=== PATIENT | male | born 1960 | race Two or more races ===

== ENCOUNTER 2022-03-02 18:18 | Emergency (ER) | payer MEDICARE, OTHER ==
[~2022-03-02] VITALS: Ht 162.6 cm; Wt 65.8 kg
[2022-03-02] MEDS ORDERED: VANCOMYCIN 1 GM in IV D5W 250 ML IV ONE (20:00)
[2022-03-02] MEDS ORDERED: CEFEPIME 1 GM in IV D5W 50 ML IV ONE (20:00)
[2022-03-02 20:12] LABS: BASOPHILS % (AUTO) 0.4 % (0.0-2.0); EOSINOPHILS % (AUTO) 1.2 % (0.0-6.0); HEMATOCRIT 33 % (39-51); LYMPHOCYTES # (AUTO) 1.4 K/uL (0.8-4.8); MEAN CORPUSCULAR HGB CONC 33 g/dl (31.0-36.0); MEAN CORPUSCULAR VOLUME 88 fL (80-96); MONOCYTES # (AUTO) 0.7 K/uL (0.1-1.30); MONOCYTES % (AUTO) 10.3 % (2.0-12.0); NEUTROPHILS # (AUTO) 4.4 K/uL (1.8-8.9); NEUTROPHILS % (AUTO) 67.1 % (43.0-81.0); PLATELET COUNT (AUTO) 192 K/uL (150-450); RED BLOOD CELL COUNT(AUTO) 3.81 MIL/uL (4.5-6.0); WHITE BLOOD COUNT (AUTO) 6.5 K/uL (4.3-11.0)
[2022-03-02 20:27] LABS: CALCIUM, SERUM 8.6 mg/dL (8.5-10.1); CREATININE 1.1 mg/dL (0.6-1.3); POTASSIUM 3.1 mmol/L (3.5-5.1)
[2022-03-02 20:33] LABS: ALBUMIN 2.7 g/dL (3.4-5.0); BILIRUBIN,DIRECT 0.1 mg/dL (0.0-0.2); BILIRUBIN,TOTAL 0.3 mg/dL (0.2-1.0); TOTAL PROTEIN, SERUM 8.7 g/dL (6.4-8.2)
[2022-03-02] MEDS ORDERED: CEFEPIME 1 GM VIAL ONE (20:50)
[2022-03-02] MEDS ORDERED: VANCOMYCIN 1 GM VIAL ONE (20:54)
[2022-03-03] MEDS ORDERED: VANCOMYCIN 1 GM in IV D5W 250 ML IV ONE (06:00)
[2022-03-03] MEDS ORDERED: VANCOMYCIN 1 GM VIAL ONE (06:06)
[2022-03-03 09:00] VITALS: BP 120/70
== END 2022-03-03 10:23 | disposition short-term general hospital (02) ==
LOC: ER 18:51
DX: M65.841 Other synovitis and tenosynovitis, right hand (principal); L03.113 Cellulitis of right upper limb; R91.8 Other nonspecific abnormal finding of lung field; D64.9 Anemia, unspecified; R74.8 Abnormal levels of other serum enzymes; E87.6 Hypokalemia; Z96.643 Presence of artificial hip joint, bilateral; Z98.42 Cataract extraction status, left eye; Z98.41 Cataract extraction status, right eye; Z20.822 Contact with and (suspected) exposure to COVID-19
CPT/HCPCS: 99285; 96365; 71045; 96367; 87426; 93005; 73130; 85025; 80048; 87040 ×2; 83605; 80076; 36415; 85730; 96366; J3370 ×2; J7060 ×2; J0692; C9803

== ENCOUNTER 2022-04-29 23:17 | Emergency (ER) | payer MEDICARE, OTHER ==
[~2022-04-29] VITALS: Ht 162.6 cm; Wt 68.0 kg
[2022-04-30] MEDS ORDERED: MAG HYDROX/AL HYDROX/SIMETH 30 ML UDC ONE (01:41)
[2022-04-30] MEDS ORDERED: ONDANSETRON 4 MG TAB.RAPDIS ONE (01:42)
[2022-04-30] MEDS ORDERED: LIDOCAINE VISCOUS 2% UD 15 ML UDC ONE (01:42)
--- NOTE | 2022-04-30 01:44 | NUR ---
BIBSELF C/O EPIGASTRIC PAIN S/P EATING BURRITO FROM VENDING MACHINE. AWAKE AND ALERT BREATHING UNLABORED, AMBULATES WITH STEADY GAIT.
[2022-04-30] MEDS: LIDOCAINE VISCOUS 2% UD 15 ML UDC MM ONE (01:47)
[2022-04-30] MEDS: MAG HYDROX/AL HYDROX/SIMETH 30 ML UDC PO ONE (01:47)
[2022-04-30] MEDS: ONDANSETRON 4 MG TAB.RAPDIS SL ONE (01:47)
[2022-04-30] MEDS ORDERED: PANT40TA2 PO (02:24)
--- NOTE | 2022-04-30 02:36 | NUR ---
Patient discharged to home in stable condition. Written and verbal after care instructions given. Patient verbalizes understanding of instruction.
[2022-04-30 02:37] VITALS: BP 133/67
== END 2022-04-30 02:38 | disposition home or self-care (01) ==
LOC: ER 23:22
DX: K21.9 Gastro-esophageal reflux disease without esophagitis (principal); R10.13 Epigastric pain; R11.2 Nausea with vomiting, unspecified; Z96.643 Presence of artificial hip joint, bilateral; Z79.899 Other long term (current) drug therapy
CPT/HCPCS: 99283; 93005; Q0162

== ENCOUNTER 2023-03-27 16:49 | Inpatient (IN) | payer MEDICARE, OTHER ==
[~2023-03-27] VITALS: Ht 162.6 cm; Wt 52.2 kg
[~2023-03-27 16:49] MED LIST: PANT40TA2 PO
[2023-03-27] MEDS ORDERED: ALBUTEROL FS 2.5 MG/3 ML VIAL.NEB NEB ONE (17:30)
[2023-03-27] MEDS ORDERED: IPRATROPIUM NEB FS 0.5 MG/2.5 ML AMPUL.NEB NEB ONE (17:30)
[2023-03-27 17:34] LABS: BASOPHILS % (AUTO) 0.1 % (0.0-2.0); EOSINOPHILS # (AUTO) 0.2 K/uL (0.0-0.7); EOSINOPHILS % (AUTO) 1.4 % (0.0-6.0); HEMATOCRIT 30 % (39-51); HEMOGLOBIN 9.8 g/dL (13.5-17.5); LYMPHOCYTES # (AUTO) 0.9 K/uL (0.8-4.8); LYMPHOCYTES % (AUTO) 7.8 % (20.0-44.0); MEAN CORPUSCULAR HEMOGLOBIN 30 PG (26.0-33.0); MEAN CORPUSCULAR HGB CONC 32 g/dl (31.0-36.0); MEAN CORPUSCULAR VOLUME 92 fL (80-96); MONOCYTES # (AUTO) 1.2 K/uL (0.1-1.30); MONOCYTES % (AUTO) 10.4 % (2.0-12.0); NEUTROPHILS # (AUTO) 9.1 K/uL (1.8-8.9); NEUTROPHILS % (AUTO) 80.3 % (43.0-81.0); PLATELET COUNT (AUTO) 148 K/uL (150-450); RED BLOOD CELL COUNT(AUTO) 3.28 MIL/uL (4.5-6.0); RED CELL DISTRIBUTION WIDTH 16.6 % (11.5-15.0); WHITE BLOOD COUNT (AUTO) 11.4 K/uL (4.3-11.0)
[2023-03-27 17:42] LABS: CALCIUM, SERUM 8.5 mg/dL (8.5-10.1); CARBON DIOXIDE 18 mmol/L (21-32); CHLORIDE 102 mmol/L (98-107); CREATININE 1.1 mg/dL (0.6-1.3); GLUCOSE 94 mg/dL (74-106); POTASSIUM 3.4 mmol/L (3.5-5.1); SODIUM SERUM 133 mmol/L (136-145); UREA NITROGEN, BLOOD 22 mg/dL (7-18)
[2023-03-27 17:53] LABS: ALANINE AMINOTRANSFERASE 65 U/L (12-78); ALBUMIN 2.6 g/dL (3.4-5.0); ALKALINE PHOSPHATASE 825 U/L (46-116); ASPARTATE AMINOTRANSFERASE 70 U/L (15-37); BILIRUBIN,DIRECT 0.3 mg/dL (0.0-0.2); BILIRUBIN,TOTAL 0.5 mg/dL (0.2-1.0); TOTAL PROTEIN, SERUM 8.6 g/dL (6.4-8.2)
[2023-03-27] MEDS ORDERED: VANCOMYCIN 1 GM in IV D5W 250 ML IV ONE (18:00)
[2023-03-27] MEDS ORDERED: CEFTRIAXONE 1GM BAG (ER ONLY) 50 ML IV ONE ×2 (18:00→18:15)
[2023-03-27] MEDS ORDERED: AZITHROMYCIN 500 MG in IV D5W 250 ML IV ONE (18:00)
[2023-03-27] MEDS ORDERED: CLON0.5T4 PO (18:03)
[2023-03-27] MEDS ORDERED: OXYC10TA49 PO (18:03)
[2023-03-27] MEDS ORDERED: MULT-754 PO (18:03)
[2023-03-27] MEDS ORDERED: FERR325T23 PO (18:03)
[2023-03-27] MEDS ORDERED: SERT50TA PO (18:03)
[2023-03-27] MEDS ORDERED: BICA50TA49 PO (18:03)
[2023-03-27] MEDS ORDERED: OMEP20TA5 PO (18:03)
[2023-03-27] MEDS ORDERED: ALBUTEROL FS 2.5 MG/3 ML VIAL.NEB ONE (18:11)
[2023-03-27 18:12] VITALS: O2SAT 96
[2023-03-27] MEDS ORDERED: IPRATROPIUM NEB FS 0.5 MG/2.5 ML AMPUL.NEB ONE (18:12)
[2023-03-27] MEDS ORDERED: VANCOMYCIN 1 GM /D5W 250 ML PB IV ONE (18:15)
[2023-03-27 18:22] VITALS: O2SAT 98
[2023-03-27 20:00] VITALS: BP_SYST 119; BP_SYST 98; BP_DIAS 72; BP_DIAS 77; TEMP 100.2; TEMP 97.9; O2SAT 100; O2SAT 97
[2023-03-27] MEDS ORDERED: POTASSIUM CHLORIDE 20 MEQ TAB.PRT.SR PO ONE (20:00)
[2023-03-27] MEDS ORDERED: ONDANSETRON HCL/PF 4 MG/2 ML VIAL IVP PRN (20:00)
[2023-03-27] MEDS: ENOXAPARIN SODIUM 40 MG/0.4 ML DISP.SYRIN SQ SCH (21:54)
[2023-03-27] MEDS: ACETAMINOPHEN 325 MG TABLET PO PRN (22:08)
[2023-03-28] VITALS: BP 90/61; TEMP 98.4; O2SAT 98
[2023-03-28] MEDS ORDERED: GUAIFENESIN/D-METHORPHAN HB 5 ML UDC PO PRN
[2023-03-28] MEDS ORDERED: IPRATROPIUM NEB FS 0.5 MG/2.5 ML AMPUL.NEB NEB PRN
[2023-03-28] MEDS: IV NS 0.9% 1,000 ML IV PRN ×2 (01:00→19:19)
[2023-03-28 04:00] VITALS: BP 98/72; TEMP 97.9; O2SAT 100
[2023-03-28 05:44] LABS: BASOPHILS % (AUTO) 0.1 % (0.0-2.0); EOSINOPHILS # (AUTO) 0.3 K/uL (0.0-0.7); EOSINOPHILS % (AUTO) 2.7 % (0.0-6.0); HEMATOCRIT 28 % (39-51); HEMOGLOBIN 9.1 g/dL (13.5-17.5); LYMPHOCYTES # (AUTO) 0.5 K/uL (0.8-4.8); LYMPHOCYTES % (AUTO) 4.5 % (20.0-44.0); MEAN CORPUSCULAR HEMOGLOBIN 30 PG (26.0-33.0); MEAN CORPUSCULAR HGB CONC 33 g/dl (31.0-36.0); MEAN CORPUSCULAR VOLUME 92 fL (80-96); MONOCYTES # (AUTO) 0.5 K/uL (0.1-1.30); MONOCYTES % (AUTO) 4.4 % (2.0-12.0); NEUTROPHILS # (AUTO) 10.1 K/uL (1.8-8.9); NEUTROPHILS % (AUTO) 88.3 % (43.0-81.0); PLATELET COUNT (AUTO) 126 K/uL (150-450); RED BLOOD CELL COUNT(AUTO) 3.01 MIL/uL (4.5-6.0); RED CELL DISTRIBUTION WIDTH 15.8 % (11.5-15.0); WHITE BLOOD COUNT (AUTO) 11.4 K/uL (4.3-11.0)
[2023-03-28 05:56] LABS: CALCIUM, SERUM 8.2 mg/dL (8.5-10.1); CREATININE 1.5 mg/dL (0.6-1.3); MAGNESIUM 1.9 mg/dL (1.8-2.4); PHOSPHORUS 4.4 mg/dL (2.5-4.9); POTASSIUM 3.3 mmol/L (3.5-5.1)
[2023-03-28 08:00] VITALS: BP 100/67; TEMP 97.6; O2SAT 100
[2023-03-28] MEDS: ACETAMINOPHEN 325 MG TABLET PO PRN (08:53)
[2023-03-28] MEDS: Z GUARD REMEDY 4 OZ OINT TP SCH (09:10)
[2023-03-28] MEDS ORDERED: POTASSIUM CHLORIDE 20 MEQ TAB.PRT.SR PO SCH (10:30)
[2023-03-28 12:00] VITALS: BP 96/66; TEMP 97.5; O2SAT 100
[2023-03-28] MEDS: HYDROCODONE/APAP 5/325MG TABLET PO PRN (13:28)
[2023-03-28 13:44] LABS: APPEARANCE,URINE CLEAR (CLEAR); BILIRUBIN,URINE NEGATIVE (NEGATIVE); BLOOD, URINE NEGATIVE Ery/uL (NEGATIVE); COLOR,URINE YELLOW (YELLOW); KETONES,URINE NEGATIVE (NEGATIVE); LEUKOCYTE ESTERASE ,URINE NEGATIVE (NEGATIVE); NITRITE, URINE NEGATIVE (NEGATIVE); PROTEIN,URINE 1+ mg/dl (NEGATIVE); UGLUCOSE NEGATIVE (NEGATIVE); UROBILINOGEN,URINE 0.2 EU/dL (0.2)
[2023-03-28 14:00] LABS: EOSINOPHIL,URINE Rare
[2023-03-28 14:02] LABS: CREATININE, URINE 156.1 MG/DL (30.0-125.0); URINE TOTAL PROTEIN 100.1 mg/dL (0-11.9)
[2023-03-28 14:12] LABS: MAGNESIUM 1.9 mg/dL (1.8-2.4); PHOSPHORUS 4.5 mg/dL (2.5-4.9)
[2023-03-28 14:23] LABS: THYROID STIMULATING HORMONE 0.599 uIU/mL (0.358-3.74)
[2023-03-28 16:00] VITALS: BP 96/66; TEMP 97.5; O2SAT 99
[2023-03-28] MEDS: CEFTRIAXONE 1 G in IV D5W 50 ML IV SCH (16:34)
[2023-03-28] MEDS: AZITHROMYCIN 500 MG in IV D5W 250 ML IV SCH (17:09)
[2023-03-28 20:00] VITALS: BP 94/66; TEMP 97.3; O2SAT 100
[2023-03-28] MEDS: ENOXAPARIN SODIUM 40 MG/0.4 ML DISP.SYRIN SQ SCH (21:33)
[2023-03-29] MEDS: HYDROCODONE/APAP 5/325MG TABLET PO PRN ×2 (01:00→20:57)
[2023-03-29 05:54] LABS: BASOPHILS % (AUTO) 0.4 % (0.0-2.0); EOSINOPHILS % (AUTO) 20.5 % (0.0-6.0); HEMATOCRIT 28 % (39-51); HEMOGLOBIN 9.5 g/dL (13.5-17.5); LYMPHOCYTES # (AUTO) 0.7 K/uL (0.8-4.8); LYMPHOCYTES % (AUTO) 15.6 % (20.0-44.0); MEAN CORPUSCULAR HEMOGLOBIN 31 PG (26.0-33.0); MEAN CORPUSCULAR HGB CONC 34 g/dl (31.0-36.0); MEAN CORPUSCULAR VOLUME 92 fL (80-96); MONOCYTES # (AUTO) 0.4 K/uL (0.1-1.30); MONOCYTES % (AUTO) 7.7 % (2.0-12.0); NEUTROPHILS # (AUTO) 2.7 K/uL (1.8-8.9); NEUTROPHILS % (AUTO) 55.8 % (43.0-81.0); PLATELET COUNT (AUTO) 122 K/uL (150-450); RED BLOOD CELL COUNT(AUTO) 3.04 MIL/uL (4.5-6.0); RED CELL DISTRIBUTION WIDTH 15.9 % (11.5-15.0); WHITE BLOOD COUNT (AUTO) 4.8 K/uL (4.3-11.0)
[2023-03-29 06:32] LABS: ALBUMIN 2.1 g/dL (3.4-5.0); BILIRUBIN,TOTAL 0.2 mg/dL (0.2-1.0); CALCIUM, SERUM 8.6 mg/dL (8.5-10.1); CREATININE 1.5 mg/dL (0.6-1.3); PHOSPHORUS 4.5 mg/dL (2.5-4.9); POTASSIUM 3.6 mmol/L (3.5-5.1); TOTAL PROTEIN, SERUM 7.6 g/dL (6.4-8.2)
[2023-03-29 08:00] VITALS: BP 105/67; TEMP 97.9; O2SAT 100
[2023-03-29] MEDS: Z GUARD REMEDY 4 OZ OINT TP SCH (09:07)
[2023-03-29 09:29] LABS: LYMPHOCYTES % (MANUAL) 8 % (16-48); MONOCYTES % (MANUAL) 16 % (0-11.0); NEUTROPHILS % (MANUAL) 67 (42-76); PLATELET ESTIMATE DECREASED; REACTIVE LYMPHOCYTES 9 % (0-0)
[2023-03-29 09:31] LABS: ANISOCYTOSIS 1+
[2023-03-29 16:00] VITALS: BP 110/73; TEMP 98.2; O2SAT 93
[2023-03-29] MEDS: CEFTRIAXONE 1 G in IV D5W 50 ML IV SCH (16:06)
[2023-03-29] MEDS: AZITHROMYCIN 500 MG in IV D5W 250 ML IV SCH (17:24)
[2023-03-29 20:00] VITALS: BP 110/72; TEMP 97.9; O2SAT 97
[2023-03-29] MEDS: ENOXAPARIN SODIUM 40 MG/0.4 ML DISP.SYRIN SQ SCH (20:57)
[2023-03-30] VITALS: BP 109/74; TEMP 97.5; O2SAT 100
[2023-03-30] MEDS: IV NS 0.9% 1,000 ML IV PRN (01:46)
[2023-03-30 04:00] VITALS: BP 128/81; TEMP 97.7; O2SAT 100
[2023-03-30 06:03] LABS: CALCIUM, SERUM 8.5 mg/dL (8.5-10.1); MAGNESIUM 1.8 mg/dL (1.8-2.4); PHOSPHORUS 4.5 mg/dL (2.5-4.9); POTASSIUM 3.8 mmol/L (3.5-5.1)
[2023-03-30 06:10] LABS: BASOPHILS % (AUTO) 0.4 % (0.0-2.0); EOSINOPHILS # (AUTO) 0.8 K/uL (0.0-0.7); EOSINOPHILS % (AUTO) 23.8 % (0.0-6.0); HEMATOCRIT 28 % (39-51); HEMOGLOBIN 9.4 g/dL (13.5-17.5); LYMPHOCYTES # (AUTO) 0.8 K/uL (0.8-4.8); LYMPHOCYTES % (AUTO) 24.2 % (20.0-44.0); MEAN CORPUSCULAR HEMOGLOBIN 31 PG (26.0-33.0); MEAN CORPUSCULAR HGB CONC 33 g/dl (31.0-36.0); MEAN CORPUSCULAR VOLUME 92 fL (80-96); MONOCYTES # (AUTO) 0.4 K/uL (0.1-1.30); MONOCYTES % (AUTO) 11.9 % (2.0-12.0); NEUTROPHILS # (AUTO) 1.4 K/uL (1.8-8.9); NEUTROPHILS % (AUTO) 39.7 % (43.0-81.0); PLATELET COUNT (AUTO) 133 K/uL (150-450); RED BLOOD CELL COUNT(AUTO) 3.05 MIL/uL (4.5-6.0); RED CELL DISTRIBUTION WIDTH 16.1 % (11.5-15.0); WHITE BLOOD COUNT (AUTO) 3.4 K/uL (4.3-11.0)
[2023-03-30 09:07] LABS: PTH, INTACT 10 pg/mL (15-65)
[2023-03-30] MEDS: Z GUARD REMEDY 4 OZ OINT TP SCH (09:07)
[2023-03-30 11:30] VITALS: BP 96/66; TEMP 98.1; O2SAT 97
[2023-03-30] MEDS: ACETAMINOPHEN 325 MG TABLET PO PRN (12:54)
[2023-03-30 13:33] LABS: MONOCYTES % (MANUAL) 13 % (0-11.0)
[2023-03-30 13:34] LABS: LYMPHOCYTES % (MANUAL) 22 % (16-48)
[2023-03-30 13:36] LABS: EOSINOPHILS % (MANUAL) 10 % (0-4); NEUTROPHILS % (MANUAL) 55 (42-76)
[2023-03-30 13:37] LABS: PLATELET ESTIMATE DECREASED
[2023-03-30 13:38] LABS: ANISOCYTOSIS 1+
[2023-03-30] MEDS ORDERED: GUAIFENESIN/D-METHORPHAN HB 5 ML UDC PO PRN (14:30)
[2023-03-30 16:00] VITALS: BP 105/76; TEMP 97.5; O2SAT 100
[2023-03-30] MEDS: CEFTRIAXONE 1 G in IV D5W 50 ML IV SCH (16:49)
[2023-03-30] MEDS: AZITHROMYCIN 500 MG in IV D5W 250 ML IV SCH (17:43)
[2023-03-30 20:00] VITALS: BP 101/75; TEMP 98.2; O2SAT 99
[2023-03-30] MEDS: MECLIZINE HCL 25 MG TABLET PO SCH (20:29)
[2023-03-30] MEDS: ENOXAPARIN SODIUM 40 MG/0.4 ML DISP.SYRIN SQ SCH (20:41)
[2023-03-31] VITALS (7 sets, daily range): BP systolic 106–122; BP diastolic 68–81; TEMP 97.5–98.8; O2SAT 96–100
[2023-03-31] MEDS: MECLIZINE HCL 25 MG TABLET PO SCH ×3 (04:44→20:30)
[2023-03-31 05:09] LABS: *SPE A/G RATIO 0.6 (0.7-1.7); *SPE ALBUMIN 2.5 g/dL (2.9-4.4); *SPE ALPHA-1-GLOBULIN 0.4 g/dL (0.0-0.4); *SPE ALPHA-2-GLOBULIN 0.7 g/dL (0.4-1.0); *SPE GLOBULIN, TOTAL 4.4 g/dL (2.2-3.9); *SPE M-SPIKE Not Observed g/dL (Not Observed); *SPE PROTEIN TOTAL 6.9 g/dL (6.0-8.5); *SPEGAMMA GLOBULIN 2.2 g/dL (0.4-1.8)
[2023-03-31] MEDS: IV NS 0.9% 1,000 ML IV PRN (05:31)
[2023-03-31 06:19] LABS: BASOPHILS % (AUTO) 0.3 % (0.0-2.0); EOSINOPHILS # (AUTO) 0.7 K/uL (0.0-0.7); EOSINOPHILS % (AUTO) 18.5 % (0.0-6.0); HEMATOCRIT 28 % (39-51); HEMOGLOBIN 9.2 g/dL (13.5-17.5); LYMPHOCYTES # (AUTO) 0.8 K/uL (0.8-4.8); LYMPHOCYTES % (AUTO) 21.4 % (20.0-44.0); MEAN CORPUSCULAR HEMOGLOBIN 31 PG (26.0-33.0); MEAN CORPUSCULAR HGB CONC 33 g/dl (31.0-36.0); MEAN CORPUSCULAR VOLUME 92 fL (80-96); MONOCYTES # (AUTO) 0.4 K/uL (0.1-1.30); MONOCYTES % (AUTO) 12.6 % (2.0-12.0); NEUTROPHILS # (AUTO) 1.7 K/uL (1.8-8.9); NEUTROPHILS % (AUTO) 47.2 % (43.0-81.0); PLATELET COUNT (AUTO) 152 K/uL (150-450); RED BLOOD CELL COUNT(AUTO) 2.99 MIL/uL (4.5-6.0); RED CELL DISTRIBUTION WIDTH 16.4 % (11.5-15.0); WHITE BLOOD COUNT (AUTO) 3.5 K/uL (4.3-11.0)
[2023-03-31 07:15] LABS: ALBUMIN 2.2 g/dL (3.4-5.0); BILIRUBIN,TOTAL 0.2 mg/dL (0.2-1.0); CALCIUM, SERUM 8.5 mg/dL (8.5-10.1); CREATININE 0.9 mg/dL (0.6-1.3); MAGNESIUM 1.6 mg/dL (1.8-2.4); PHOSPHORUS 4.2 mg/dL (2.5-4.9); POTASSIUM 4.1 mmol/L (3.5-5.1); TOTAL PROTEIN, SERUM 7.4 g/dL (6.4-8.2)
[2023-03-31] MEDS: Z GUARD REMEDY 4 OZ OINT TP SCH (09:25)
[2023-03-31] MEDS: Magnesium 1GM/D5W 100ML PREMIX 100 ML IV SCH ×2 (10:24→11:25)
[2023-03-31] MEDS: CEFTRIAXONE 1 G in IV D5W 50 ML IV SCH (17:17)
[2023-03-31] MEDS: AZITHROMYCIN 500 MG in IV D5W 250 ML IV SCH (17:21)
[2023-03-31] MEDS: ENOXAPARIN SODIUM 40 MG/0.4 ML DISP.SYRIN SQ SCH (20:32)
[2023-04-01] VITALS: BP 124/82; TEMP 97.9; O2SAT 100
[2023-04-01] MEDS: MECLIZINE HCL 25 MG TABLET PO SCH ×3 (04:37→20:36)
[2023-04-01] MEDS: IV NS 0.9% 1,000 ML IV PRN (06:24)
[2023-04-01 07:16] LABS: CALCIUM, SERUM 8.4 mg/dL (8.5-10.1); CREATININE 0.9 mg/dL (0.6-1.3); MAGNESIUM 1.7 mg/dL (1.8-2.4)
[2023-04-01 07:30] LABS: BASOPHILS % (AUTO) 0.8 % (0.0-2.0); EOSINOPHILS # (AUTO) 0.6 K/uL (0.0-0.7); EOSINOPHILS % (AUTO) 18.4 % (0.0-6.0); HEMATOCRIT 28 % (39-51); HEMOGLOBIN 9.2 g/dL (13.5-17.5); LYMPHOCYTES # (AUTO) 0.8 K/uL (0.8-4.8); LYMPHOCYTES % (AUTO) 23.7 % (20.0-44.0); MEAN CORPUSCULAR HEMOGLOBIN 31 PG (26.0-33.0); MEAN CORPUSCULAR HGB CONC 33 g/dl (31.0-36.0); MEAN CORPUSCULAR VOLUME 92 fL (80-96); MONOCYTES # (AUTO) 0.6 K/uL (0.1-1.30); MONOCYTES % (AUTO) 18.3 % (2.0-12.0); NEUTROPHILS # (AUTO) 1.3 K/uL (1.8-8.9); NEUTROPHILS % (AUTO) 38.8 % (43.0-81.0); PLATELET COUNT (AUTO) 154 K/uL (150-450); RED CELL DISTRIBUTION WIDTH 15.8 % (11.5-15.0); WHITE BLOOD COUNT (AUTO) 3.3 K/uL (4.3-11.0)
[2023-04-01 08:00] VITALS: BP 127/81; TEMP 97.9; O2SAT 100
[2023-04-01 08:49] LABS: BILIRUBIN,TOTAL 0.2 mg/dL (0.2-1.0)
[2023-04-01 08:50] LABS: ALBUMIN 2.2 g/dL (3.4-5.0); BILIRUBIN,DIRECT 0.1 mg/dL (0.0-0.2); TOTAL PROTEIN, SERUM 7.2 g/dL (6.4-8.2)
[2023-04-01] MEDS ORDERED: MAGNESIUM OXIDE 400 MG TABLET PO ONE (09:30)
[2023-04-01 10:11] LABS: BAND % (MANUAL) 1 % (0.0-5.0); EOSINOPHILS % (MANUAL) 8 % (0-4); LYMPHOCYTES % (MANUAL) 32 % (16-48); MONOCYTES % (MANUAL) 23 % (0-11.0); NEUTROPHILS % (MANUAL) 36 (42-76); PLATELET ESTIMATE ADEQUATE
[2023-04-01] MEDS: Z GUARD REMEDY 4 OZ OINT TP PRN (10:18)
[2023-04-01] MEDS: Z GUARD REMEDY 4 OZ OINT TP SCH (11:16)
[2023-04-01] MEDS ORDERED: CT SWABBABLE VALVE TRANS SET 1 EA INFUS.SET MC ONE (13:42)
[2023-04-01] MEDS ORDERED: IV NS 0.9% 250 ML IV ONE (13:42)
[2023-04-01] MEDS ORDERED: IOHEXOL-300 100 ML VIAL IV ONE (13:42)
[2023-04-01 16:00] VITALS: BP 139/93; TEMP 99.3; O2SAT 97
[2023-04-01] MEDS: HYDROCODONE/APAP 5/325MG TABLET PO PRN ×3 (16:50→17:58)
[2023-04-01] MEDS: CEFTRIAXONE 1 G in IV D5W 50 ML IV SCH (16:53)
[2023-04-01 20:00] VITALS: BP 130/79; TEMP 97.7; O2SAT 100
[2023-04-01] MEDS: ENOXAPARIN SODIUM 40 MG/0.4 ML DISP.SYRIN SQ SCH (20:37)
[2023-04-01 20:43] VITALS: BP 130/79; TEMP 97.7; O2SAT 100
[2023-04-02] VITALS: BP 126/92; TEMP 97.5; O2SAT 99
[2023-04-02] MEDS: MECLIZINE HCL 25 MG TABLET PO SCH ×3 (04:22→20:19)
[2023-04-02 06:57] LABS: BASOPHILS % (AUTO) 1.2 % (0.0-2.0); EOSINOPHILS # (AUTO) 0.7 K/uL (0.0-0.7); EOSINOPHILS % (AUTO) 19.3 % (0.0-6.0); HEMATOCRIT 24 % (39-51); HEMOGLOBIN 8.1 g/dL (13.5-17.5); LYMPHOCYTES # (AUTO) 0.9 K/uL (0.8-4.8); MEAN CORPUSCULAR HEMOGLOBIN 31 PG (26.0-33.0); MEAN CORPUSCULAR HGB CONC 33 g/dl (31.0-36.0); MEAN CORPUSCULAR VOLUME 92 fL (80-96); MONOCYTES # (AUTO) 0.6 K/uL (0.1-1.30); MONOCYTES % (AUTO) 17.6 % (2.0-12.0); NEUTROPHILS # (AUTO) 1.2 K/uL (1.8-8.9); NEUTROPHILS % (AUTO) 35.9 % (43.0-81.0); PLATELET COUNT (AUTO) 190 K/uL (150-450); RED BLOOD CELL COUNT(AUTO) 2.67 MIL/uL (4.5-6.0); RED CELL DISTRIBUTION WIDTH 15.8 % (11.5-15.0); WHITE BLOOD COUNT (AUTO) 3.4 K/uL (4.3-11.0)
[2023-04-02 07:33] LABS: CALCIUM, SERUM 8.5 mg/dL (8.5-10.1); CREATININE 0.9 mg/dL (0.6-1.3); MAGNESIUM 1.5 mg/dL (1.8-2.4); PHOSPHORUS 3.6 mg/dL (2.5-4.9); POTASSIUM 4.2 mmol/L (3.5-5.1)
[2023-04-02 07:42] LABS: ALBUMIN 2.3 g/dL (3.4-5.0); BILIRUBIN,DIRECT 0.1 mg/dL (0.0-0.2); BILIRUBIN,TOTAL 0.2 mg/dL (0.2-1.0); TOTAL PROTEIN, SERUM 7.8 g/dL (6.4-8.2)
[2023-04-02 07:48] LABS: FREE PSA 5.39 ng/mL (0.00-45); PROSTATE SPECIFIC ANTIGEN SCR 29.86 ng/mL (0.00-4.00)
[2023-04-02] MEDS: ENSURE ENLIVE CHOC 237 ML CAN PO SCH ×2 (07:58→17:09)
[2023-04-02 08:08] LABS: THYROID STIMULATING HORMONE 1.059 uIU/mL (0.358-3.74)
[2023-04-02 08:31] VITALS: BP 122/82; TEMP 98.1; O2SAT 100
[2023-04-02] MEDS: BICALUTAMIDE 50 MG TABLET PO SCH (08:31)
[2023-04-02] MEDS: Z GUARD REMEDY 4 OZ OINT TP SCH (08:31)
[2023-04-02 10:35] LABS: RHEUMATOID FACTOR SCREEN NEGATIVE (NEGATIVE)
[2023-04-02 10:45] LABS: BAND % (MANUAL) 2 % (0.0-5.0); EOSINOPHILS % (MANUAL) 8 % (0-4); LYMPHOCYTES % (MANUAL) 32 % (16-48); MONOCYTES % (MANUAL) 31 % (0-11.0); NEUTROPHILS % (MANUAL) 27 (42-76); PLATELET ESTIMATE ADEQUATE
[2023-04-02] MEDS ORDERED: MAGNESIUM OXIDE 400 MG TABLET PO ONE (11:00)
[2023-04-02 12:00] VITALS: BP 116/68; TEMP 97.5; O2SAT 96
[2023-04-02] MEDS ORDERED: FLUCONAZOLE (100 MG) 100 MG TABLET PO ONE (13:30)
[2023-04-02 15:06] LABS: HEMOGLOBIN 8.5 g/dL (13.5-17.5)
[2023-04-02] MEDS: CEFTRIAXONE 1 G in IV D5W 50 ML IV SCH (16:03)
[2023-04-02 16:11] VITALS: BP 112/68; TEMP 97.4; O2SAT 97
[2023-04-02] MEDS: ACETAMINOPHEN 325 MG TABLET PO PRN (17:33)
[2023-04-02 20:00] VITALS: BP 121/77; TEMP 99; O2SAT 100
[2023-04-02] MEDS: ENOXAPARIN SODIUM 40 MG/0.4 ML DISP.SYRIN SQ SCH (20:20)
[2023-04-02] MEDS: HYDROCODONE/APAP 5/325MG TABLET PO PRN (22:36)
[2023-04-03] VITALS: BP 99/63; TEMP 98.1; O2SAT 99
[2023-04-03 04:11] VITALS: BP 129/79; TEMP 98.2; O2SAT 100
[2023-04-03] MEDS: MECLIZINE HCL 25 MG TABLET PO SCH ×3 (04:58→21:38)
[2023-04-03 05:50] LABS: BASOPHILS % (AUTO) 1.2 % (0.0-2.0); EOSINOPHILS # (AUTO) 0.4 K/uL (0.0-0.7); EOSINOPHILS % (AUTO) 15.8 % (0.0-6.0); HEMATOCRIT 28 % (39-51); HEMOGLOBIN 9.1 g/dL (13.5-17.5); LYMPHOCYTES % (AUTO) 36.5 % (20.0-44.0); MEAN CORPUSCULAR HEMOGLOBIN 30 PG (26.0-33.0); MEAN CORPUSCULAR HGB CONC 33 g/dl (31.0-36.0); MEAN CORPUSCULAR VOLUME 92 fL (80-96); MONOCYTES # (AUTO) 0.5 K/uL (0.1-1.30); MONOCYTES % (AUTO) 18.8 % (2.0-12.0); NEUTROPHILS # (AUTO) 0.8 K/uL (1.8-8.9); NEUTROPHILS % (AUTO) 27.7 % (43.0-81.0); PLATELET COUNT (AUTO) 152 K/uL (150-450); RED BLOOD CELL COUNT(AUTO) 3.02 MIL/uL (4.5-6.0); RED CELL DISTRIBUTION WIDTH 15.6 % (11.5-15.0); WHITE BLOOD COUNT (AUTO) 2.8 K/uL (4.3-11.0)
[2023-04-03 06:05] LABS: ALBUMIN 2.3 g/dL (3.4-5.0); BILIRUBIN,DIRECT 0.1 mg/dL (0.0-0.2); BILIRUBIN,TOTAL 0.2 mg/dL (0.2-1.0); CALCIUM, SERUM 8.6 mg/dL (8.5-10.1); CREATININE 0.8 mg/dL (0.6-1.3); MAGNESIUM 1.7 mg/dL (1.8-2.4); PHOSPHORUS 4.3 mg/dL (2.5-4.9); POTASSIUM 4.1 mmol/L (3.5-5.1); TOTAL PROTEIN, SERUM 7.5 g/dL (6.4-8.2)
[2023-04-03 07:50] LABS: BAND % (MANUAL) 1 % (0.0-5.0); EOSINOPHILS % (MANUAL) 5 % (0-4); LYMPHOCYTES % (MANUAL) 41 % (16-48); MONOCYTES % (MANUAL) 21 % (0-11.0); MYELOCYTES % 1 % (0-0); NEUTROPHILS % (MANUAL) 31 (42-76); PLATELET ESTIMATE ADEQUATE
[2023-04-03 08:00] VITALS: BP 121/71; TEMP 97.7; O2SAT 100
[2023-04-03] MEDS: BICALUTAMIDE 50 MG TABLET PO SCH (08:42)
[2023-04-03] MEDS: SULFAMETH/TRIMETH 800/160 MG 1 UDTAB TABLET PO SCH (08:42)
[2023-04-03 09:07] LABS: *BASOS 1 % (Not Estab.); *EOS 20 % (Not Estab.); *EOS, ABSOLUTE 0.8 x10E3/uL (0.0-0.4); *HCT 21.9 % (37.5-51.0); *HGB 7.1 g/dL (13.0-17.7); *IMMATURE GRANULOCYTES 3 % (Not Estab.); *IMMATURE GRANULOCYTES(ABS) 0.1 x10E3/uL (0.0-0.1); *LYMPHOCYTES 29 % (Not Estab.); *LYMPHS, ABSOLUTE 1.1 x10E3/uL (0.7-3.1); *MCH 30.1 pg (26.6-33.0); *MCHC 32.4 g/dL (31.5-35.7); *MCV 93 fL (79-97); *MONOCYTES 15 % (Not Estab.); *MONOS, ABSOLUTE 0.6 x10E3/uL (0.1-0.9); *NEUTROPHILS 32 % (Not Estab.); *NEUTROPHILS, ABSOLUTE 1.3 x10E3/uL (1.4-7.0); *PLT 205 x10E3/uL (150-450); *RBC 2.36 x10E6/uL (4.14-5.80); *RDW 14.3 % (11.6-15.4); *WBC 3.8 x10E3/uL (3.4-10.8)
[2023-04-03] MEDS ORDERED: MAGNESIUM OXIDE 400 MG TABLET PO ONE (10:00)
[2023-04-03] MEDS ORDERED: IOHEXOL-350 100 ML VIAL IV ONE (10:00)
[2023-04-03] MEDS ORDERED: CT SWABBABLE VALVE TRANS SET 1 EA INFUS.SET MC ONE (10:00)
[2023-04-03] MEDS ORDERED: IV NS 0.9% 250 ML IV ONE (10:00)
[2023-04-03] MEDS: ENSURE ENLIVE CHOC 237 ML CAN PO SCH ×2 (10:04→18:22)
[2023-04-03] MEDS: Z GUARD REMEDY 4 OZ OINT TP SCH (10:05)
[2023-04-03 10:07] LABS: *% CD 4 POS. LYMPH 4.5 % (30.8-58.5); *% CD 8 POS. LYMPH 75.7 % (12.0-35.5); *ABSOLUTE CD 4 HELPER 50 /uL (359-1519); *ABSOLUTE CD 8 SUPPRESSOR 833 /uL (109-897); *CD4/CD8 RATIO 0.06 (0.92-3.72)
[2023-04-03 12:00] VITALS: BP 133/91; TEMP 97.6; O2SAT 98
[2023-04-03 12:07] LABS: *ANA ANTI-CENTROMERE B AB <0.2 AI (0.0-0.9); *ANA ANTI-DNA(DS) AB, QN <1 IU/mL (0-9); *ANA ANTI-JO-1 <0.2 AI (0.0-0.9); *ANA ANTICHROMATIN ANTIBODY <0.2 AI (0.0-0.9); *ANA RNP ANTIBODIES <0.2 AI (0.0-0.9); *ANA SJOGREN'S ANTI-SS-A <0.2 AI (0.0-0.9); *ANA SJOGREN'S ANTI-SS-B <0.2 AI (0.0-0.9); *ANAANTI-SCLERODERMA-70 AB <0.2 AI (0.0-0.9); *ANASMITH AB <0.2 AI (0.0-0.9)
[2023-04-03] MEDS: FLUCONAZOLE (100 MG) 100 MG TABLET PO SCH (12:49)
[2023-04-03] MEDS ORDERED: FLUCONAZOLE (100 MG) 100 MG TABLET PO SCH (14:00)
[2023-04-03 14:50] LABS: HIV-1 p24 ANTIGEN NON REACTIVE (NONREACTIVE); HIV-1/2 ANTIBODY REACTIVE (NONREACTIVE)
[2023-04-03 15:31] LABS: PROTHROMBIN TIME 10.6 SECS (9.2-11.1)
[2023-04-03 16:00] VITALS: BP 118/86; TEMP 98.8; O2SAT 100
[2023-04-03] MEDS: CEFTRIAXONE 1 G in IV D5W 50 ML IV SCH (16:26)
[2023-04-03 20:00] VITALS: BP 128/91; TEMP 96.8; O2SAT 100
[2023-04-03] MEDS ORDERED: TBO-FILGRASTIM 300 MCG/0.5 ML SYRINGE SQ SCH (20:30)
[2023-04-03] MEDS: ENOXAPARIN SODIUM 40 MG/0.4 ML DISP.SYRIN SQ SCH (21:00)
[2023-04-03] MEDS: HYDROCODONE/APAP 5/325MG TABLET PO PRN (22:21)
[2023-04-04 00:07] LABS: FOLIC ACID 8.7 ng/mL (>3.0)
[2023-04-04 01:06] LABS: *TESTOSTERONE, SERUM 954 ng/dL (264-916)
[2023-04-04 02:07] LABS: HEPATITIS B SURFACE AB Reactive (.)
[2023-04-04 02:07] LABS: HEPATITIS B CORE AB, IgM Negative (Negative); HEPATITIS B CORE AB, TOTAL Negative (Negative)
[2023-04-04 04:07] LABS: IMMUNOGLOBULIN A, SERUM 704 mg/dL (61-437); IMMUNOGLOBULIN G, SERUM 2321 mg/dL (603-1613); IMMUNOGLOBULIN M, SERUM 46 mg/dL (20-172)
[2023-04-04] MEDS: MECLIZINE HCL 25 MG TABLET PO SCH ×3 (05:32→20:48)
[2023-04-04 06:30] LABS: BASOPHILS # (AUTO) 0.1 K/uL (0.0-0.2); BASOPHILS % (AUTO) 0.4 % (0.0-2.0); EOSINOPHILS # (AUTO) 0.4 K/uL (0.0-0.7); EOSINOPHILS % (AUTO) 3.1 % (0.0-6.0); HEMATOCRIT 29 % (39-51); HEMOGLOBIN 9.3 g/dL (13.5-17.5); LYMPHOCYTES # (AUTO) 1.2 K/uL (0.8-4.8); LYMPHOCYTES % (AUTO) 8.4 % (20.0-44.0); MEAN CORPUSCULAR HEMOGLOBIN 30 PG (26.0-33.0); MEAN CORPUSCULAR HGB CONC 32 g/dl (31.0-36.0); MEAN CORPUSCULAR VOLUME 93 fL (80-96); MONOCYTES # (AUTO) 0.9 K/uL (0.1-1.30); MONOCYTES % (AUTO) 5.8 % (2.0-12.0); NEUTROPHILS % (AUTO) 82.3 % (43.0-81.0); PLATELET COUNT (AUTO) 159 K/uL (150-450); RED BLOOD CELL COUNT(AUTO) 3.12 MIL/uL (4.5-6.0); WHITE BLOOD COUNT (AUTO) 14.6 K/uL (4.3-11.0)
[2023-04-04 06:48] LABS: CALCIUM, SERUM 8.6 mg/dL (8.5-10.1); MAGNESIUM 1.8 mg/dL (1.8-2.4); PHOSPHORUS 4.1 mg/dL (2.5-4.9); POTASSIUM 5.2 mmol/L (3.5-5.1)
[2023-04-04 08:00] VITALS: BP 109/73; TEMP 97.7; O2SAT 98
[2023-04-04] MEDS: BICALUTAMIDE 50 MG TABLET PO SCH (08:54)
[2023-04-04] MEDS: AZITHROMYCIN 250 MG TABLET PO SCH (08:54)
[2023-04-04] MEDS: FLUCONAZOLE (100 MG) 100 MG TABLET PO SCH (08:54)
[2023-04-04] MEDS: SULFAMETH/TRIMETH 800/160 MG 1 UDTAB TABLET PO SCH (08:54)
[2023-04-04] MEDS: ENSURE ENLIVE CHOC 237 ML CAN PO SCH ×2 (08:55→17:04)
[2023-04-04] MEDS: Z GUARD REMEDY 4 OZ OINT TP SCH (10:46)
[2023-04-04 11:07] LABS: *ANA ANTI-CENTROMERE B AB <0.2 AI (0.0-0.9); *ANA ANTI-DNA(DS) AB, QN <1 IU/mL (0-9); *ANA ANTI-JO-1 <0.2 AI (0.0-0.9); *ANA ANTICHROMATIN ANTIBODY <0.2 AI (0.0-0.9); *ANA RNP ANTIBODIES <0.2 AI (0.0-0.9); *ANA SJOGREN'S ANTI-SS-A <0.2 AI (0.0-0.9); *ANA SJOGREN'S ANTI-SS-B <0.2 AI (0.0-0.9); *ANAANTI-SCLERODERMA-70 AB <0.2 AI (0.0-0.9); *ANASMITH AB <0.2 AI (0.0-0.9)
[2023-04-04 12:00] VITALS: BP 105/73; TEMP 97.8; O2SAT 99
[2023-04-04 16:00] VITALS: BP 118/74; TEMP 98.1; O2SAT 98
[2023-04-04] MEDS: CEFTRIAXONE 2 G in IV D5W 50 ML IV SCH (17:00)
[2023-04-04 18:15] LABS: CSF GLUCOSE 45 mg/dL (40-70); CSF PROTEIN 47.28 mg/dL (15-45)
[2023-04-04] MEDS: HYDROCODONE/APAP 5/325MG TABLET PO PRN (18:49)
[2023-04-04 18:55] LABS: CSF APPEARANCE CLEAR (CLEAR); CSF COLOR COLORLESS (COLORLESS)
[2023-04-04 20:32] VITALS: BP 107/66; TEMP 98.6; O2SAT 100
[2023-04-04] MEDS: ENOXAPARIN SODIUM 40 MG/0.4 ML DISP.SYRIN SQ SCH (20:52)
[2023-04-04] MEDS: ZOLPIDEM TARTRATE 10 MG TABLET PO PRN (21:39)
[2023-04-04 23:35] LABS: CSF WHITE BLOOD CELL COUNT 2.2 /cumm (0-5); CSF WHITE BLOOD CELL COUNT 5.5 /cumm (0-5)
[2023-04-04 23:53] VITALS: BP 105/68; TEMP 97.5; O2SAT 100
[2023-04-05 05:08] VITALS: BP 120/71; TEMP 98.4; O2SAT 100
[2023-04-05] MEDS: MECLIZINE HCL 25 MG TABLET PO SCH ×3 (05:47→21:18)
[2023-04-05 05:59] LABS: BASOPHILS # (AUTO) 0.1 K/uL (0.0-0.2); BASOPHILS % (AUTO) 0.5 % (0.0-2.0); EOSINOPHILS # (AUTO) 0.4 K/uL (0.0-0.7); EOSINOPHILS % (AUTO) 2.1 % (0.0-6.0); HEMATOCRIT 29 % (39-51); HEMOGLOBIN 9.5 g/dL (13.5-17.5); LYMPHOCYTES % (AUTO) 10.3 % (20.0-44.0); MEAN CORPUSCULAR HEMOGLOBIN 30 PG (26.0-33.0); MEAN CORPUSCULAR HGB CONC 33 g/dl (31.0-36.0); MEAN CORPUSCULAR VOLUME 93 fL (80-96); MONOCYTES # (AUTO) 1.1 K/uL (0.1-1.30); MONOCYTES % (AUTO) 5.6 % (2.0-12.0); NEUTROPHILS # (AUTO) 15.8 K/uL (1.8-8.9); NEUTROPHILS % (AUTO) 81.5 % (43.0-81.0); PLATELET COUNT (AUTO) 150 K/uL (150-450); RED BLOOD CELL COUNT(AUTO) 3.16 MIL/uL (4.5-6.0); RED CELL DISTRIBUTION WIDTH 15.6 % (11.5-15.0); WHITE BLOOD COUNT (AUTO) 19.4 K/uL (4.3-11.0)
[2023-04-05 07:00] VITALS: BP 91/63; TEMP 97.9; O2SAT 96
[2023-04-05] MEDS: BICALUTAMIDE 50 MG TABLET PO SCH (08:15)
[2023-04-05] MEDS: SULFAMETH/TRIMETH 800/160 MG 1 UDTAB TABLET PO SCH (08:16)
[2023-04-05] MEDS: FLUCONAZOLE (100 MG) 100 MG TABLET PO SCH (08:16)
[2023-04-05] MEDS: ENSURE ENLIVE CHOC 237 ML CAN PO SCH ×2 (08:16→17:06)
[2023-04-05] MEDS: AZITHROMYCIN 250 MG TABLET PO SCH (08:16)
[2023-04-05] MEDS: Z GUARD REMEDY 4 OZ OINT TP SCH (08:17)
[2023-04-05 12:00] VITALS: BP 91/63; TEMP 97.5; O2SAT 96
[2023-04-05 12:58] LABS: CALCIUM, SERUM 8.9 mg/dL (8.5-10.1); CREATININE 1.2 mg/dL (0.6-1.3); POTASSIUM 5.7 mmol/L (3.5-5.1)
[2023-04-05] MEDS ORDERED: SODIUM POLYSTYRENE SULFONATE 15 G/60 ML BOTTLE PO ONE (13:30)
[2023-04-05 16:00] VITALS: BP 104/72; TEMP 97.5; O2SAT 100
[2023-04-05] MEDS: CEFTRIAXONE 2 G in IV D5W 50 ML IV SCH (16:27)
[2023-04-05 20:00] VITALS: BP 100/66; TEMP 98.2; O2SAT 98
[2023-04-05] MEDS: ENOXAPARIN SODIUM 40 MG/0.4 ML DISP.SYRIN SQ SCH (21:20)
[2023-04-05] MEDS: HYDROCODONE/APAP 5/325MG TABLET PO PRN (21:36)
[2023-04-06] MEDS: MECLIZINE HCL 25 MG TABLET PO SCH ×3 (06:25→21:05)
[2023-04-06 07:31] LABS: BASOPHILS # (AUTO) 0.1 K/uL (0.0-0.2); EOSINOPHILS # (AUTO) 0.3 K/uL (0.0-0.7); EOSINOPHILS % (AUTO) 4.5 % (0.0-6.0); HEMATOCRIT 29 % (39-51); HEMOGLOBIN 9.3 g/dL (13.5-17.5); LYMPHOCYTES # (AUTO) 1.5 K/uL (0.8-4.8); LYMPHOCYTES % (AUTO) 19.3 % (20.0-44.0); MEAN CORPUSCULAR HEMOGLOBIN 30 PG (26.0-33.0); MEAN CORPUSCULAR HGB CONC 33 g/dl (31.0-36.0); MEAN CORPUSCULAR VOLUME 92 fL (80-96); MONOCYTES # (AUTO) 0.6 K/uL (0.1-1.30); MONOCYTES % (AUTO) 8.5 % (2.0-12.0); NEUTROPHILS % (AUTO) 66.7 % (43.0-81.0); PLATELET COUNT (AUTO) 141 K/uL (150-450); RED BLOOD CELL COUNT(AUTO) 3.09 MIL/uL (4.5-6.0); RED CELL DISTRIBUTION WIDTH 15.7 % (11.5-15.0); WHITE BLOOD COUNT (AUTO) 7.5 K/uL (4.3-11.0)
[2023-04-06 07:58] LABS: ALBUMIN 2.8 g/dL (3.4-5.0); BILIRUBIN,TOTAL 0.1 mg/dL (0.2-1.0); CALCIUM, SERUM 8.4 mg/dL (8.5-10.1); CREATININE 1.4 mg/dL (0.6-1.3); MAGNESIUM 1.8 mg/dL (1.8-2.4); PHOSPHORUS 5.2 mg/dL (2.5-4.9); POTASSIUM 4.7 mmol/L (3.5-5.1); TOTAL PROTEIN, SERUM 8.1 g/dL (6.4-8.2)
[2023-04-06 08:00] VITALS: BP 110/71; TEMP 97.8; O2SAT 94
[2023-04-06] MEDS: ENSURE ENLIVE CHOC 237 ML CAN PO SCH ×2 (08:13→17:05)
[2023-04-06] MEDS: BICALUTAMIDE 50 MG TABLET PO SCH (08:18)
[2023-04-06] MEDS: AZITHROMYCIN 250 MG TABLET PO SCH (08:18)
[2023-04-06] MEDS: FLUCONAZOLE (100 MG) 100 MG TABLET PO SCH (08:19)
[2023-04-06] MEDS ORDERED: clonazePAM 0.5 MG TABLET PO PRN (08:30)
[2023-04-06] MEDS: SERTRALINE HCL 50 MG TABLET PO SCH (08:34)
[2023-04-06] MEDS: QUETIAPINE FUMARATE 25 MG TABLET PO SCH ×2 (08:34→21:06)
[2023-04-06] MEDS: ATOVAQUONE 750 MG/5 ML UDC PO SCH (09:49)
[2023-04-06] MEDS: Z GUARD REMEDY 4 OZ OINT TP SCH (09:50)
[2023-04-06 17:06] LABS: *CRYPTOCOCCUS AG, CSF Negative (Negative)
[2023-04-06] MEDS: CEFTRIAXONE 2 G in IV D5W 50 ML IV SCH (17:16)
[2023-04-06 20:00] VITALS: BP 95/70; TEMP 98; O2SAT 99
[2023-04-06 20:30] VITALS: BP 90/60; TEMP 98; O2SAT 99
[2023-04-06] MEDS: HYDROCODONE/APAP 5/325MG TABLET PO PRN (20:40)
[2023-04-06] MEDS: ENOXAPARIN SODIUM 40 MG/0.4 ML DISP.SYRIN SQ SCH (20:54)
[2023-04-07] VITALS: BP 90/55; TEMP 98; O2SAT 100
[2023-04-07 00:06] LABS: *HIV-1 log10 RNA 6.06 (.)
[2023-04-07 04:00] VITALS: BP 107/68; TEMP 98; O2SAT 96
[2023-04-07] MEDS: MECLIZINE HCL 25 MG TABLET PO SCH ×3 (05:09→21:04)
[2023-04-07 07:00] VITALS: BP 110/72; TEMP 97.9; O2SAT 100
[2023-04-07] MEDS: SERTRALINE HCL 50 MG TABLET PO SCH (08:45)
[2023-04-07] MEDS: BICALUTAMIDE 50 MG TABLET PO SCH (08:45)
[2023-04-07] MEDS: ENSURE ENLIVE CHOC 237 ML CAN PO SCH ×2 (08:45→16:36)
[2023-04-07] MEDS: AZITHROMYCIN 250 MG TABLET PO SCH (08:45)
[2023-04-07] MEDS: FLUCONAZOLE (100 MG) 100 MG TABLET PO SCH (08:45)
[2023-04-07] MEDS: ATOVAQUONE 750 MG/5 ML UDC PO SCH (08:46)
[2023-04-07] MEDS: Z GUARD REMEDY 4 OZ OINT TP PRN (09:48)
[2023-04-07] MEDS: Z GUARD REMEDY 4 OZ OINT TP SCH (09:49)
[2023-04-07 16:00] VITALS: BP 114/74; TEMP 97.9; O2SAT 98
[2023-04-07 20:00] VITALS: BP 98/71; TEMP 98.6; O2SAT 99
[2023-04-07] MEDS: ENOXAPARIN SODIUM 40 MG/0.4 ML DISP.SYRIN SQ SCH (21:04)
[2023-04-07] MEDS: QUETIAPINE FUMARATE 25 MG TABLET PO SCH (21:05)
[2023-04-08] VITALS (7 sets, daily range): BP systolic 95–113; BP diastolic 69–80; TEMP 97.5–98.2; O2SAT 98–100
[2023-04-08] MEDS: MECLIZINE HCL 25 MG TABLET PO SCH ×3 (04:26→21:23)
[2023-04-08 05:52] LABS: BASOPHILS # (AUTO) 0.1 K/uL (0.0-0.2); BASOPHILS % (AUTO) 1.1 % (0.0-2.0); EOSINOPHILS # (AUTO) 0.8 K/uL (0.0-0.7); EOSINOPHILS % (AUTO) 17.1 % (0.0-6.0); HEMATOCRIT 27 % (39-51); HEMOGLOBIN 9.1 g/dL (13.5-17.5); LYMPHOCYTES # (AUTO) 1.5 K/uL (0.8-4.8); LYMPHOCYTES % (AUTO) 32.5 % (20.0-44.0); MEAN CORPUSCULAR HEMOGLOBIN 31 PG (26.0-33.0); MEAN CORPUSCULAR HGB CONC 33 g/dl (31.0-36.0); MEAN CORPUSCULAR VOLUME 93 fL (80-96); MONOCYTES # (AUTO) 0.6 K/uL (0.1-1.30); MONOCYTES % (AUTO) 13.6 % (2.0-12.0); NEUTROPHILS # (AUTO) 1.7 K/uL (1.8-8.9); NEUTROPHILS % (AUTO) 35.7 % (43.0-81.0); PLATELET COUNT (AUTO) 120 K/uL (150-450); RED BLOOD CELL COUNT(AUTO) 2.94 MIL/uL (4.5-6.0); RED CELL DISTRIBUTION WIDTH 15.6 % (11.5-15.0); WHITE BLOOD COUNT (AUTO) 4.8 K/uL (4.3-11.0)
[2023-04-08 06:40] LABS: ALBUMIN 2.9 g/dL (3.4-5.0); BILIRUBIN,TOTAL 0.1 mg/dL (0.2-1.0); CALCIUM, SERUM 8.6 mg/dL (8.5-10.1); CREATININE 1.3 mg/dL (0.6-1.3); MAGNESIUM 2.1 mg/dL (1.8-2.4); PHOSPHORUS 4.5 mg/dL (2.5-4.9); TOTAL PROTEIN, SERUM 8.3 g/dL (6.4-8.2)
[2023-04-08] MEDS: ENSURE ENLIVE CHOC 237 ML CAN PO SCH ×2 (07:33→16:43)
[2023-04-08] MEDS: SERTRALINE HCL 50 MG TABLET PO SCH (08:36)
[2023-04-08] MEDS: BICALUTAMIDE 50 MG TABLET PO SCH (08:36)
[2023-04-08] MEDS: FLUCONAZOLE (100 MG) 100 MG TABLET PO SCH (08:37)
[2023-04-08] MEDS: ATOVAQUONE 750 MG/5 ML UDC PO SCH (08:39)
[2023-04-08] MEDS: Z GUARD REMEDY 4 OZ OINT TP SCH (08:40)
[2023-04-08] MEDS: ACETAMINOPHEN 325 MG TABLET PO PRN (15:10)
[2023-04-08] MEDS: QUETIAPINE FUMARATE 25 MG TABLET PO SCH (21:23)
[2023-04-08] MEDS: ENOXAPARIN SODIUM 40 MG/0.4 ML DISP.SYRIN SQ SCH (21:24)
[2023-04-08] MEDS: HYDROCODONE/APAP 5/325MG TABLET PO PRN (21:33)
[2023-04-08] MEDS: ZOLPIDEM TARTRATE 10 MG TABLET PO PRN (22:39)
[2023-04-09] VITALS: BP 110/78; TEMP 97.7; O2SAT 99
[2023-04-09 04:00] VITALS: BP 108/76; TEMP 97.5; O2SAT 98
[2023-04-09] MEDS: MECLIZINE HCL 25 MG TABLET PO SCH (05:53)
[2023-04-09] MEDS: ENSURE ENLIVE CHOC 237 ML CAN PO SCH (07:51)
[2023-04-09 08:00] VITALS: BP 93/66; TEMP 97.7; O2SAT 99
[2023-04-09] MEDS: BICALUTAMIDE 50 MG TABLET PO SCH (08:10)
[2023-04-09] MEDS: FLUCONAZOLE (100 MG) 100 MG TABLET PO SCH (08:10)
[2023-04-09] MEDS: SERTRALINE HCL 50 MG TABLET PO SCH (08:10)
[2023-04-09] MEDS: ATOVAQUONE 750 MG/5 ML UDC PO SCH (08:11)
[2023-04-09] MEDS: Z GUARD REMEDY 4 OZ OINT TP SCH (08:15)
[2023-04-09] MEDS ORDERED: FLUC200T8 PO (11:31)
[2023-04-09] MEDS ORDERED: ATOV750O4 PO (11:31)
[2023-04-09] MEDS ORDERED: BICA50TA49 PO (11:31)
[2023-04-09] MEDS ORDERED: QUET25TA PO (11:31)
== END 2023-04-09 13:40 | DRG 974 ==
LOC: ER 16:59 → TELE 20:46 → MED 04-09 09:22
PROVIDERS: ADMIT Nurse Practitioner Acute Care; ATTEND Nurse Practitioner Acute Care
PROC: 009U3ZX Drainage of Spinal Canal, Percutaneous Approach, Diagnostic (ICD-10-PCS; principal; 2023-04-04)
PROC: B01BYZZ Fluoroscopy of Spinal Cord using Other Contrast (ICD-10-PCS; 2023-04-04)
DX: A41.9 Sepsis, unspecified organism (principal); J96.01 Acute respiratory failure with hypoxia; B20 Human immunodeficiency virus [HIV] disease; J15.69 Pneumonia due to other Gram-negative bacteria; E44.0 Moderate protein-calorie malnutrition; E87.1 Hypo-osmolality and hyponatremia; N17.9 Acute kidney failure, unspecified; E87.20 Acidosis, unspecified; Z59.00 Homelessness unspecified; C46.9 Kaposi's sarcoma, unspecified; C79.51 Secondary malignant neoplasm of bone; Z20.822 Contact with and (suspected) exposure to COVID-19; I12.9 Hypertensive chronic kidney disease with stage 1 through stage 4 chronic kidney disease, or unspecified chronic kidney disease; N18.9 Chronic kidney disease, unspecified; Z96.643 Presence of artificial hip joint, bilateral; Z98.890 Other specified postprocedural states; Z79.899 Other long term (current) drug therapy; E87.6 Hypokalemia; D64.9 Anemia, unspecified; E88.09 Other disorders of plasma-protein metabolism, not elsewhere classified; R79.1 Abnormal coagulation profile; M89.8X9 Other specified disorders of bone, unspecified site; R13.10 Dysphagia, unspecified; R29.6 Repeated falls; Z87.01 Personal history of pneumonia (recurrent); Z91.148 Patient's other noncompliance with medication regimen for other reason; Z85.89 Personal history of malignant neoplasm of other organs and systems; Z85.46 Personal history of malignant neoplasm of prostate; I70.8 Atherosclerosis of other arteries; F43.10 Post-traumatic stress disorder, unspecified; E87.5 Hyperkalemia; D72.821 Monocytosis (symptomatic); R74.01 Elevation of levels of liver transaminase levels; C61 Malignant neoplasm of prostate; Z86.19 Personal history of other infectious and parasitic diseases
CPT/HCPCS: 36415; 62270; 70460-TC; 71045-TC; 71270-TC; 74170-TC; 74178; 74230-TC; 76705-TC; 76770-TC; 80048-TC; 80053-TC; 80076-TC; 82533; 82550-TC; 82570-TC; 82607-TC; 82728-TC; 82784; 83540-TC; 83615-TC; 83735-TC; 83935-TC; 83970; 84100-TC; 84153-TC; 84154-TC; 84155; 84165; 84300-TC; 84403; 84443-TC; 84484-TC; 84560-TC; 85025-TC; 85027-TC; 85378-TC; 85610-TC; 86225; 86235; 86334; 86360; 86431-TC; 86592; 86593; 86704; 86705; 86706; 86803; 87040-TC; 87081-TC; 87102-TC; 87340; 87536; 87806; 87899; 89051-TC; 92526; 93970-TC; 94799-TC; 97110-TC; 97116-TC; 97530-TC; 97535-TC; A4223; C9803; G0378; J0456; J0696; J1442; J1650; J3370; J3475; J7030; J7050; J7060; J8597; Q9967